=== PATIENT | female | born 1970 | race Caucasian/White ===

== ENCOUNTER 2017-03-29 06:46 | Day surgery (SDC) | payer BC ==
--- NOTE | 2017-03-29 05:52 | History and Physical Report ---
DATE: 03/28/2017. CHIEF COMPLAINT AND HISTORY OF CHIEF COMPLAINT: This patient presents with a history of multiple spinal surgeries with continued back and leg pain. Due to the failure of all therapies, she is here for a spinal opioid infusion trial with an implanted catheter technique with hydromorphone. PAST MEDICAL HISTORY: Hypertension, hypothyroidism. PAST SURGICAL HISTORY: Multiple spinal surgeries, knee surgery, hysterectomy, gastric bypass. MEDICATIONS ON ADMISSION: To be provided. ALLERGIES: Penicillin, sulfa, fluoride, Vancomycin, and Latex. SOCIAL HISTORY: Noncontributory. FAMILY HISTORY: Thyroid disease, hypertension. REVIEW OF SYSTEMS: The patient seems appropriate and in no acute distress. The remainder of the systems review shows glasses, headaches, thyroid disease, blood pressure problems, peripheral edema, degenerative arthritis, fibromyalgia , difficulty sleeping. PHYSICAL EXAMINATION: General: Height and weight are not available. Vital Signs: Unavailable. Musculoskeletal: Current examination shows diffuse tenderness in the lumbar spine. Range of motion produces pain into both lower extremities, somewhat more right than left. Motor and sensory field functionality is intact; although there is a 5-1 pattern, somewhat more right than left. Ambulation: No assistive device utilized. Neurologic: Cranial nerves are intact. IMPRESSION: 1. POSTLUMBAR LAMINECTOMY SYNDROME, ICD-10 CODE M96.1. 2. LUMBAR RADICULITIS, ICD-10 CODE M54.16 AND M54.17. PLAN: The patient is here for an implanted spinal catheter infusion trial with hydromorphone to determine if the implantation of a permanent system can be of any value in pain control. The potential risks, side effects, and complications have all been reviewed including spinal cord injury, nerve root injury, and spinal headache. A review and discussion with the food service sales representatives from the company has also been documented. Information was provided and reviewed and discussed. The patient understands and has consented. The procedure will be considered outpatient, although an overnight stay will be evaluated. JOB NUMBER: [id number] cc: Mihir Yu D.O. MTDD
[~2017-03-29 06:46] MED LIST: ACETAMINOPHEN 1,000 MG/100 ML BTL IV ONE; FAMOTIDINE 20MG TABLET PO ONE; HYDROMORPHONE HCL IV ONE; HYDROMORPHONE HCL/PF 0.002 MG in 0.9 % SODIUM CHLORIDE 10ML VIA 0.998 ML IV ONE; LEVOFLOXACIN 500MG IVPB 500 MG/100 ML BAG IVPB ONE; MECLIZINE 25 MG TABLET PO ONE; METOCLOPRAMIDE 10 MG TABLET PO ONE; SODIUM CHLORIDE 0.9% IV ONE
[2017-03-29] MEDS ORDERED: LIDOCAINE 1% W/EPI 1:200,000 MPF 30ML SQ ONE (06:47)
[2017-03-29] MEDS ORDERED: FENTANYL PF 100MCG/2ML VIAL IV ONE (06:47)
[2017-03-29] MEDS ORDERED: PROPOFOL 10 MG/ML VIAL IV ONE (06:47)
[2017-03-29] MEDS ORDERED: LIDOCAINE 2% MDV (20MG/ML) 20ML VIAL IV ONE (06:47)
[2017-03-29] MEDS ORDERED: ONDANSETRON HCL IV 4 MG/2 ML VIAL IVP ONE (06:47)
[2017-03-29] MEDS ORDERED: SCOPOLAMINE 1 PATCH TDSY TD ONE (06:47)
[2017-03-29] MEDS ORDERED: MIDAZOLAM HCL 2MG/2ML VIAL IV ONE (06:47)
[2017-03-29] MEDS ORDERED: BUPIVACAINE 0.75% W/EPI MPF 30ML VIAL IVP ONE (06:47)
[2017-03-29] MEDS ORDERED: HYDROCODONE/APAP 7.5/325MG TABLET PO PRN ×2 (10:23)
[2017-03-29] MEDS ORDERED: METOCLOPRAMIDE 10 MG TABLET PO PRN (10:23)
[2017-03-29] MEDS ORDERED: DIPHENHYDRAMINE HCL 25 MG CAPSULE PO PRN ×2 (10:23)
[2017-03-29] MEDS ORDERED: NALOXONE 0.4 MG/1 ML VIAL IVP PRN (10:23)
[2017-03-29] MEDS ORDERED: METOCLOPRAMIDE HCL 10 MG/2 ML VIAL IVP PRN (10:23)
[2017-03-29] MEDS ORDERED: ACETAMINOPHEN 325 MG TAB PO PRN ×2 (10:23)
[2017-03-29] MEDS ORDERED: RINGERS SOLUTION,LACTATED 1,000 ML IV SCH (10:23)
[2017-03-29] MEDS ORDERED: HYDROMORPHONE HCL 1 MG/ML SYRINGE IM PRN (10:23)
[2017-03-29] MEDS ORDERED: TEMAZEPAM 15 MG CAPSULE PO PRN ×2 (10:23)
[2017-03-29] MEDS ORDERED: DIPHENHYDRAMINE HCL IV 50 MG/ML VIAL IVP PRN ×2 (10:23)
[2017-03-29] MEDS ORDERED: HYDROMORPHONE HCL 2 MG/ML VIAL IM PRN (10:23)
[2017-03-29] MEDS ORDERED: SENNOSIDES/DOCUSATE SODIUM UD CAPSULE PO PRN ×2 (10:23)
[2017-03-29] MEDS ORDERED: AL HYDROX/MAG HYDROX 30ML UD PO PRN (10:23)
[2017-03-29] MEDS ORDERED: OXYCODONE/APAP 10MG-325MG TABLET PO PRN ×2 (10:23)
[2017-03-29] MEDS ORDERED: TIZANIDINE HCL 4 MG TABLET PO PRN (10:26)
[2017-03-29] MEDS ORDERED: DULOXETINE HCL 30 MG CAPSULE.DR PO SCH (11:00)
--- NOTE | 2017-03-29 19:30 | Operative Note - [facility]ro ---
DATE OF SURGERY: 03/29/17 PREOPERATIVE DIAGNOSES: 1. POST LUMBAR LAMINECTOMY SYNDROME, ICD-10 CODE = M96.1. 2. LUMBAR RADICULITIS, ICD-10 CODE = M54.16 AND M54.17. OPERATION: 1. FLUOROSCOPICALLY-GUIDED SPINAL ACCESS SPACE AT L2-3, PLACEMENT OF THIN- WALLED SPINAL CATHETER T11-12 USING PARAMEDIAN APPROACH 20-GAUGE SPINAL NEEDLE. 2. DIAGNOSTIC MYELOGRAPHY WITH RADIOLOGIC SUPERVISION AND INTERPRETATION. 3. SPINAL OPIOID BOLUS SPINAL SPACE HYDROMORPHONE, 0.002 MG. 4. INCISION, SUBCUTANEOUS DISSECTION, AND ANCHORING OF SPINAL CATHETER TO SUPRASPINOUS FASCIA USING ANCHORING DEVICE AND NONABSORBABLE SUTURE. 5. INCISION, SUBCUTANEOUS DISSECTION, AND CREATION OF A SUBCUTANEOUS POUCH, LEFT POSTERIOR GLUTEAL MARGIN. 6. TUNNELING BETWEEN SPINAL CATHETER POUCH INTO POSTERIOR GLUTEAL POUCH TUNNELING SPINAL CATHETER INTO POUCH. INTERFACE CATHETER WITH SECOND CATHETER COMPONENT BY WAY OF CONNECTOR. 7. TUNNELING SECONDARY CATHETER COMPONENTS 6 CM SUPERIOR EXITING SKIN. 8. INTERFACE EXTERNAL CATHETER TO INFUSION PUMP SET TO DELIVER HYDROMORPHONE AT 0.04 MG A DAY. 9 CLOSURE OF MIDLINE INCISION, VICRYL FOR FASCIA, AND RUNNING SUBCUTICULAR VICRYL FOR SKIN. CLOSURE OF POSTERIOR GLUTEAL MARGIN POUCH WITH NYLON SUTURE SIMPLE RUNNING. 10. EPIDURAL BLOOD PATCH AT L3-4, 20 ML AUTOLOGOUS BLOOD DRAWN STERILE TECHNIQUE , LEFT ANTECUBITAL. 11. PLACEMENT OF DRESSINGS SECURING CATHETER AND ALL CONNECTIONS UNDER STERILE DRESSING. 12. TRANSPORTING PATIENT TO RECOVERY ROOM FLAT, PILLOW UNDER HEAD AND KNEES. STABLE AND SHOWING NO SIDE-EFFECTS FROM THE PROCEDURE OR THE SEDATION. SURGEON: ROSALBA SETHI D.O. ANESTHESIA: LOCAL SEDATION. ANESTHESIA PROVIDER: JUAN MANUEL HORTA CRNA. INDICATION: This patient presents with a history of post lumbar laminectomy radiculitis. An implanted spinal stimulator also in place. The patient continues to be painful. She is here for a spinal opioid infusion to determine if the implantation of a permanent system can be of any value in her pain control. PROCEDURE: Intravenous line, vital sign monitoring, IV sedation, prepped and draped in sterile technique. Patient position prone. Sterile prep and sterile technique. Laminectomy bone fusion at 5-1, laminectomy at 4-5, the blood patch planted 3-4, spinal catheter insertion at 2-3. Skin infiltrated. A 20-gauge spinal needle beveled with a long axis in a paramedian approach was used to gain entry into the spinal space. The needle was advanced using sequential AP and lateral imaging. On the lateral image with the needle advanced into the spinal space, CSF flow was noted through the hub of the needle. A thin-walled spinal catheter was then advanced positioned T11-12. Catheter was clamped to stop CSF leak. Skin above and below the needle infiltrated, incision made, and subcutaneous dissection was conducted to the supraspinous fascia. A nonabsorbable suture and pursestring was then placed around the needle. The needle was removed and the pursestring tightened to stop CSF leak. The needle was removed. The stylette from the spinal catheter removed. The catheter was placed onto the sterile field. CSF was noted coming through the spinal catheter. Catheter again clamped to stop CSF leak. Once the catheter had been fully anchored to the supraspinous fascia with the anchoring device and nonabsorbable suture, a diagnostic myelogram was performed under radiologic supervision and interpretation. Contrast flow characteristics at T10-11 were appropriate midline. No obstructions or redirections, appropriate flow characteristics. Catheter was then clamped. Prior to this, a bolus of Hydromorphone at 0.002 mg given into the spinal space. At the left posterior gluteal margin ultimately where the pump reservoir will be placed, skin infiltrated, a small incision made, and a small subcutaneous pouch was formed. A tunneling tool was then used to carry the spinal catheter into the posterior pouch. Once into the pouch, the spinal catheter was interfaced with the second catheter component by way of a connector. The second catheter component was then tunneled 6 cm superior to this pouch and exited the skin. It was interfaced with an external pump, which was started to infuse Hydromorphone at 0.04 mg a day. The midline incision was then closed with Vicryl for fascia and running subcuticular Vicryl for skin. The left posterior gluteal pouch was closed with a running nylon suture. At L3-4, which was one level below the dural puncture for the spinal catheter, the skin infiltrated and a 17-gauge six- inch Tuohy needle was then used to perform an epidural blood patch with 20 mL of autologous blood. These areas were reinforced. The dressings were placed securing the catheter and all connections under the sterile dressing. She was transported to the Recovery Room flat, pillow under head and knees, stable showing no side-effects from the procedure or the sedation. She will be monitored flat for four hours, slowly elevated for one, and then be evaluated for discharge. DISCHARGE INSTRUCTIONS: 1. The sites will remain clean and dry. No showering or bathing in any way that disrupts dressing. If it happens, contact the clinic. 2. Standard medications resumed, including Levaquin, the antibiotic, 500 mg once a day for 14 days. 3. Spinal opioid side-effects including respiratory depression, nausea, vomiting , constipation, urinary retention, lightheadedness, or rash have all been discussed and reviewed. All other instructions provided and side-effects have been discussed. She will be seen in the office within the next two days for a possible increase. A series of three increases will be performed potentially as necessary. All other instructions provided, numbers to contact, problems given. The potential side-effects from spinal opioids have been carefully reviewed and discussed. All questions were answered. She will be seen in the office within the next 24-48 hours. cc: Dr. Sandra Martinez JOB NUMBER: [id number] MTDD
[2017-03-29] MEDS ORDERED: LAMOTRIGINE 100 MG TABLET PO SCH (22:00)
[2017-03-29] MEDS ORDERED: BYSTOLIC 5 MG PO SCH (22:00)
[2017-03-30] MEDS ORDERED: LEVOTHYROXINE SODIUM 25 MCG TABLET PO SCH (07:00)
--- NOTE | 2017-03-30 10:45 | RADIOLOGY REPORT ---
EXAM: PORTABLE LUMBAR SPINE HISTORY: STIMULATORY PLACEMENT. TECHNIQUE: A single AP view of the lumbar spine was performed. FINDINGS: Stimulator lead tips are at the T6 level. IMPRESSION: STIMULATOR LEAD TIPS ARE AT THE T6 LEVEL. JOB NUMBER: [id number] MTDD
== END 2017-03-29 14:50 | disposition home or self-care (01) ==
LOC: SUR 06:46 → MEDSURG 10:21 → SUR 14:50
PROVIDERS: ATTEND Pain Medicine Interventional Pain Medicine
DX: M96.1 Postlaminectomy syndrome, not elsewhere classified (principal); M54.17 Radiculopathy, lumbosacral region; M54.16 Radiculopathy, lumbar region; I10 Essential (primary) hypertension; E03.9 Hypothyroidism, unspecified; E66.9 Obesity, unspecified; Z68.38 Body mass index [BMI] 38.0-38.9, adult
CPT/HCPCS: 72020; 85002; J1170; J1956; J2405; J3490; J7040

== ENCOUNTER 2017-04-12 11:01 | Day surgery (SDC) | payer BC ==
--- NOTE | 2017-04-12 06:10 | History and Physical Report ---
DATE: 04/11/2017. CHIEF COMPLAINT AND HISTORY OF CHIEF COMPLAINT: This patient presents with a history of a postlaminectomy radiculitis. She has an implanted spinal catheter infusion trial with hydromorphone. She has achieved greater than 75 percent pain control. Her current infusion rate is 0.2 mg per day. She wants to move forward with a permanent implant. PAST MEDICAL HISTORY: Hypertension, hypothyroidism. PAST SURGICAL HISTORY: Multiple spinal surgeries, knee surgery, hysterectomy, gastric bypass. MEDICATIONS ON ADMISSION: To be provided. ALLERGIES: Penicillin, sulfa, fluoride, vancomycin, Latex. SOCIAL HISTORY: Noncontributory. FAMILY HISTORY: Thyroid disease, hypertension. REVIEW OF SYSTEMS: The patient is appropriate and in no acute distress. The remainder of the systems review shows glasses, headaches, thyroid disease, blood pressure problems, peripheral edema, degenerative arthritis, fibromyalgia , difficulty sleeping. PHYSICAL EXAMINATION: General: Height and weight not known. Vital Signs: Not available. HEENT: Within normal limits. Lungs: Clear. Heart: Regular rate and rhythm. Abdomen: Nontender. Musculoskeletal: Examination of the musculoskeletal system shows dressings for the implanted catheter trial. Her primary pain pattern is postlaminectomy radiculitis. Her lower extremity functionality shows that sensory de la paz are intact. Motor functionality is intact. Ambulation: No assistive device utilized. Neurologic: Cranial nerves are intact. IMPRESSION: 1. POSTLUMBAR LAMINECTOMY SYNDROME, ICD-10 CODE M96.1. 2. LUMBAR RADICULITIS, ICD-10 CODE M54.16 AND M54.17. 3. IMPLANTED SPINAL CATHETER INFUSION TRIAL WITH HYDROMORPHONE. PLAN: The patient has done quite well with greater than 75 percent pain control. We are here for implantation of a permanent system. We will consider the procedure outpatient, although an overnight stay will be evaluated. The potential risks, side effects, and complications have all been carefully reviewed and discussed. JOB NUMBER: [id number] cc: Mihir Richardson
[~2017-04-12 11:01] MED LIST changes: +DAPTOMYCIN 500 MG/VIAL IV ONE; +HYDROMORPHONE HCL 0.08 GM in 0.9 % SODIUM CHLORIDE 10ML VIA 40 ML IV ONE; -HYDROMORPHONE HCL IV ONE; -HYDROMORPHONE HCL/PF 0.002 MG in 0.9 % SODIUM CHLORIDE 10ML VIA 0.998 ML IV ONE; +HYDROMORPHONE HCL/PF 0.002 MG in 0.9 % SODIUM CHLORIDE 10ML VIA 0.998 ML IVP ONE; -LEVOFLOXACIN 500MG IVPB 500 MG/100 ML BAG IVPB ONE; -SODIUM CHLORIDE 0.9% IV ONE
[2017-04-12] MEDS ORDERED: SCOPOLAMINE 1 PATCH TDSY TD ONE (11:02)
[2017-04-12] MEDS ORDERED: PROPOFOL 10 MG/ML VIAL IV ONE (11:02)
[2017-04-12] MEDS ORDERED: FENTANYL PF 100MCG/2ML VIAL IV ONE (11:02)
[2017-04-12] MEDS ORDERED: LIDOCAINE 2% MDV (20MG/ML) 20ML VIAL IV ONE (11:02)
[2017-04-12] MEDS ORDERED: LIDOCAINE 1% W/EPI 1:200,000 MPF 30ML SQ ONE (11:02)
[2017-04-12] MEDS ORDERED: MIDAZOLAM HCL 2MG/2ML VIAL IV ONE (11:02)
[2017-04-12] MEDS ORDERED: ONDANSETRON HCL IV 4 MG/2 ML VIAL IVP ONE (11:02)
[2017-04-12] MEDS ORDERED: BUPIVACAINE 0.75% W/EPI MPF 30ML VIAL IVP ONE (11:02)
--- NOTE | 2017-04-13 08:33 | RADIOLOGY REPORT ---
EXAM: AP PORTABLE THORACOLUMBAR SPINE HISTORY: POST PAIN PUMP IMPLANT. TECHNIQUE: AP portable view of the spine was obtained including the thoracic spine from the approximate T4 level inferiorly into the upper lumbar region. Comparison: Ap spine film dated 03/29/17. FINDINGS: Battery pack again seen overlying the right lower quadrant with the associated wire extending to the spine and with the superior extent of the stimulator lead tips at the approximate T5-T6 interspace level. A metallic density partially seen along the left side of the lower spine was present previously as well and may be some form of orthopedic fixation screw. Faint density overlying the lower lumbar spinal canal may be residual contrast media in the spinal canal. Faint wire density also seen overlying the lumbar spine with a tiny dot like metallic density at the level of the T12-L1 interspace, also present previously and may be the tip of tiny catheter. Correlation with the various prior procedure suggested. Battery pack left lower quadrant may be associated with this tiny wire/catheter overlying the lumbar spine. IMPRESSION: 1. STIMULATOR TIPS ASSOCIATED A BATTERY PACK RIGHT LOWER QUADRANT EXTEND UP TO THE LEVEL OF THE T5-T6 INTERSPACE. 2. THERE MAY BE A FAINT CATHETER OVERLYING THE LUMBAR SPINE EXTENDING UP TO THE T12-L1 INTERSPACE. JOB NUMBER: [id number] MTDD
--- NOTE | 2017-04-13 18:22 | Operative Note - [facility] ---
DATE OF SURGERY: 04/12/17 PREOPERATIVE DIAGNOSES: 1. POST LUMBAR LAMINECTOMY SYNDROME, ICD-10 CODE = M96.1. 2. LUMBAR RADICULITIS, ICD-10 CODE = M54.16 AND M54.17. 3. IMPLANTED SPINAL CATHETER INFUSION TRIAL HYDROMORPHONE. OPERATION: 1. INCISION, SUBCUTANEOUS DISSECTION, AND REMOVAL OF EXTERNAL CATHETER. 2. INCISION, SUBCUTANEOUS DISSECTION, AND REVISION OF INDWELLING CATHETER INTERFACED WITH SECOND CATHETER COMPONENT WITH CONNECTOR. 3. INCISION, SUBCUTANEOUS DISSECTION, AND FORMATION OF SUBCUTANEOUS POUCH AT THE LEFT POSTERIOR GLUTEAL MARGIN FOR PLACEMENT OF PUMP IDENTIFIED A MEDTRONIC 40 ML PROGRAMMABLE. 4. INTERFACE REVISED CATHETER TO PUMP, PLACEMENT OF PUMP INTO POUCH SECURING TO POSTERIOR FASCIA WITH NONABSORBABLE SUTURE, THREE POINTS PUMP EYELETS. 5. PLACEMENT OF CURVED 24-GAUGE KUMAR NEEDLE INTO ACCESS PORT PROGRAMMABLE PUMP ASPIRATING 1 ML OF CATHETER CONTENTS CLEARING CATHETER OF OPIOID AND CSF MIXTURE. 6. DIAGNOSTIC MYELOGRAPHY WITH RADIOLOGIC SUPERVISION AND INTERPRETATION THROUGH ACCESS PORT. 7. CLOSURE OF INCISION, VICRYL FOR FASCIA, RUNNING SUBCUTICULAR VICRYL FOR SKIN , DERMABOND CLOSURE. 8. PROGRAMMING OF PUMP TO DELIVER BY CONTINUOUS INFUSION HYDROMORPHONE AT 0.2 MG PER DAY. SURGEON: ROSALBA SETHI D.O. ANESTHESIA: LOCAL SEDATION. ANESTHESIA PROVIDER: JUAN MANUEL HORTA CRNA INDICATION: This patient presents with a history of post laminectomy radiculitis. She has an implanted spinal catheter infusion trial Hydromorphone ongoing for two weeks. She has achieved 75 plus percent pain control. Due to the failure of all other therapies and the success of the trial, she is here for implantation for a permanent system by her request. PROCEDURE: Intravenous line, vital sign monitoring, IV sedation, prepped and draped with sterile technique. All the external dressing removed. At the left posterior gluteal margin, a small incision was infiltrated with local, incision made, and subcutaneous dissection was conducted to open the pouch previously formed. Within the pouch, the indwelling spinal catheter was clamped and the external catheter was cut and removed by pulling away from the wound. The internal catheter was then revised and resected with a second catheter component by way of a connector; this would interface to pump. At this incisional site, the incision was extended and subcutaneous dissection was conducted to form a pouch of suitable size and depth for the pump, a Medtronic 40 mL Programmable. Antibiotic irrigation and Bovie for hemostasis. A 40 mL programmable pump, Technorides, placed onto the field pre-filled with Hydromorphone at a 2 mg per mL concentration. The revised catheter was then interfaced to the pump. The pump was placed into the pouch and secured to the fascia with nonabsorbable suture at three points using the pump eyelets. A curved 24-gauge Kumar needle was inserted into the access port of the pump and 1 mL of catheter contents was aspirated clearing the catheter of opioid and CSF mixture. Contrast was then injected. The resulting diagnostic myelography with radiologic supervision and interpretation showed contrast moving to the internal network of the pump. No obstructions. Contrast was seen moving to the pump catheter connection. No obstructions or leaks. Catheter tip T12 identified with smooth linear flow of contrast noted and appropriate myelogram characteristics identified. Functionality of the system identified. At that point, the incision was then closed Vicryl for fascia and a running subcuticular Vicryl for skin. A Dermabond closure used to approximate the edges of the wound. The pump was then programmed to deliver by continuous infusion Hydromorphone at 0.2 mg per day. She was transported to the Recovery Room, stable, showing no side-effects from the procedure or the sedation. When fully awake and alert, she was prepared for discharge by her request. DISCHARGE INSTRUCTIONS: 1. Sites will remain clean and dry. No showering or bathing in any way that would disrupt dressings. If it happens, contact the clinic. 2. Standard medications resumed including Clindamycin to be taken as directed for 10 days. 3. Spinal opioid side-effects; respiratory depression, nausea, vomiting, constipation, urinary retention, lightheadedness or rash have all been discussed and reviewed. Should they happen, contact the clinic or go to a local Emergency Room. All other instructions provided, numbers to contact, problems given. She was then prepared for discharge. cc: Dr. Sandra Chavez JOB NUMBER: [id number] MTDD
== END 2017-04-12 15:25 | disposition home or self-care (01) ==
LOC: SUR 11:01
PROVIDERS: ATTEND Pain Medicine Interventional Pain Medicine
DX: M96.1 Postlaminectomy syndrome, not elsewhere classified (principal); M54.16 Radiculopathy, lumbar region; M54.17 Radiculopathy, lumbosacral region; I10 Essential (primary) hypertension; E03.9 Hypothyroidism, unspecified
CPT/HCPCS: 62350; 62362; 00630; 62367; 72020; Q9967; J2405; J1170; J0878; J3010; J3490; C1755